=== PATIENT | male | born 1960 ===

== ENCOUNTER 2025-10-13 08:24 | Outpatient (CLI) | payer MEDICARE, SELFPAY ==
[2025-10-13 08:56] VITALS: BMI 37.9
--- NOTE | 2025-10-13 09:05 | NMCV_ITS ---
NM jayesh perf SPECT r/s* [id number] Jessi Ott Jr Age: 65 Gender: M : 1960 Exam Date: 10/13/2025 09:24 Ordering Phys: Stalin Yuan MD Technologist: BROOKE Nino Exam Location: [facility] Indications: cp STRESS TEST Please see separate stress test report in [facility] for full findings IMAGE PROTOCOL Rest/Stress 1 Exercise Day Radiopharmaceutical Dose (mCi) Administration Site Administered by Rest: Tc-99m 10.8 IV Ashwini Peraza, MARINE ENGINE MACHINIST APPRENTICE Sestamibi Stress:Tc-99m 32.9 IV Ashwini Morrisongle, MARINE ENGINE MACHINIST APPRENTICE Sestamibi Rest: 13-Oct-2025 60 Discovery 630 Stress: 13-Oct-2025 30 Discovery 630 Radiopharmaceutical was injected at 85 % maximum heart rate. Images obtained in supine and prone position. SPECT RESULTS Technical Quality: Good Raw Data Analysis: Normal Image Corrections: No attenuation or motion correction applied Summed Stress Score: 0 Summed Rest Score: 0 Summed Difference Score: 0 PERFUSION FINDINGS Medium sized area of moderate reversibility noted in basal to distal anterior wall suggestive of possible ischemia in LAD territory. FUNCTIONAL RESULTS (calculated via Gated SPECT) Stress Image LV EF (%): 58 Stress EDV (mL):117 TID: 1.03 Stress ESV (mL):49 FUNCTIONAL FINDINGS: There is normal left ventricular systolic function. IMPRESSIONS Medium sized area of moderate reversibility noted in basal to distal anterior wall suggestive of ischemia in LAD territory. Cici Damon MD (Electronically Signed) Final Date: 13 October 2025 12:10 S
--- NOTE | 2025-10-13 09:05 | ECG_ITS ---
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 Baseline heart rate was 77 beats per minute. Baseline blood pressure was 158/89 millimeters of mercury. Target heart rate was 155 beats per minute. Maximum heart rate achieved was 140, which was 90 % of the target heart rate. Maximum blood pressure was 209/89 millimeters of mercury. Total exercise time was 6 minutes 31 seconds. Maximum METs achieved was 6.8, maximum VO2 was 23.8. The reason for ending the test was maximum effort achieved. The patient complained of shortness of breath during the stress test, which then resolved at the end of the test. ELECTROCARDIOGRAM: BASELINE: Showed sinus rhythm, normal axis, no significant ST-T changes at the baseline noted. EXERCISE: At the peak exercise level, no significant ST-T changes suggestive of ischemia noted. RECOVERY: During the recovery period, heart rate dropped appropriately. No significant ST-T changes in the recovery suggestive of ischemia noted. CONCLUSION: 1. Exercise capacity poor. 2. Heart rate response was appropriate. 3. Blood pressure response was hypertensive. 4. Symptoms not suggestive of ischemia. 5. Electrocardiogram portion of the stress test was not suggestive of ischemia. 6. Nuclear scan will be documented separately. Electronically Signed On 10-21-2025 16:19:56 MH TEACHER by COLEMAN SANTOS [email or web address]
[2025-10-13 10:25] VITALS: BP 156/82; PULSE 95
== END 2025-10-13 08:25 | disposition home or self-care (01) ==
LOC: CDL 08:29
PROVIDERS: PCP Family Medicine; Visit Provider Family Medicine
DX: R07.9 Chest pain, unspecified (principal); R93.1 Abnormal findings on diagnostic imaging of heart and coronary circulation
CPT/HCPCS: 36415; 78452; 93017; A9500